=== PATIENT | female | born 1985 | race Hispanic/Latino ===

== ENCOUNTER 2018-04-15 20:42 | Inpatient (IN) | payer MEDICAID ==
[2018-04-15 20:48] VITALS: BMI 24.0
[2018-04-15] MEDS ORDERED: Sodium Chloride 0.9% 1,000 ML IV STA ×2 (20:54→21:30)
--- NOTE | 2018-04-15 20:57 | ED PDOC ---
Arrival/HPI - General Time Seen by Provider: 04/15/18 20:49 Historian: EM Caveat: Intubated (unresponsive) - Critical Care Critical Care Minutes: 45 minutes - History of Present Illness Narrative History of Present Illness (Text): 04/15/18 20:40 Unknown age female, with unknown history, presents to the emergency department by a passer by found to be unresponsive. Patient was found on the street with an empty bottle of Xanax next to her. Upon arrival to the emergency department, patient is unresponsive, cyanotic, and brought immediately to the resuscitation room. 2mg Narcan given with no response and blood sugar checked noted to be normal. Patient intubated upon arrival. HPI and ROS limited due to patient's state of unresponsiveness. Past Medical History - Provider Review Nursing Documentation Reviewed: Yes - Infectious Disease Hx of Infectious Diseases: None - Psychiatric Hx Substance Use: No (UTO) Family/Social History - Physician Review Nursing Documentation Reviewed: Yes Family/Social History: Unknown Family HX Smoking Status: Unknown If Ever Smoked Hx Alcohol Use: No (UTO) Hx Substance Use: No (UTO) Allergies/Home Meds Allergies/Adverse Reactions: Allergies Unobtainable Allergy (Verified 04/15/18 20:48) Home Medications: Home Meds Medication Instructions Recorded Confirmed RX: Unobtainable 04/15/18 04/15/18 Review of Systems - Physician Review All systems were reviewed & negative as marked: Yes - Review of Systems Systems not reviewed;Unavailable: Intubated (unresponsive) Physical Exam - Physical Exam Physical Exam Limitations: Other (unresponsive) Vital Signs Reviewed: Yes Temperature: Afebrile Blood Pressure: Normal Pulse: Tachycardic Respiratory Rate: Tachypneic Appearance: Positive for: Well-Appearing, Non-Toxic Pain Distress: None Mental Status: Positive for: other (unresponsive) - Systems Exam Head: Present: Atraumatic, Normocephalic Pupils: Present: Other (Constricted pupils) Conjunctiva: Present: Normal Neck: Present: Normal Range of Motion Respiratory/Chest: Present: Clear to Auscultation, Good Air Exchange. No: Respiratory Distress, Accessory Muscle Use Cardiovascular: Present: Regular Rate and Rhythm, Normal S1, S2. No: Murmurs Abdomen: No: Distention Back: Present: Normal Inspection Upper Extremity: Present: Normal Inspection. No: Cyanosis, Edema Lower Extremity: Present: Normal Inspection. No: Edema Skin: Present: Warm, Dry. No: Rashes Medical Decision Making ED Course and Treatment: 04/15/18 20:40 Impression: Unknown age female brought in by passer by for unresponsiveness. Patient was found in the street with empty bottle of Xanax. Patient intubated. suspect toxidrome Plan: -- ABG -- CT Head w/o contrast -- EKG -- Labs -- Chest X-Ray -- IV Fluids -- Urinary Cath -- Ventilator Setting -- HCG, Qualitative, Urinalysis -- Reassess and disposition Progress Notes: Respiratory therapist paged. 04/15/18 20:46 PROCEDURE: INTUBATION Performed by the emergency provider Time: 20:46 Timeout: A timeout to verify the correct patient, procedure, and site was performed. Indication: unresponsive Pre-oxygenation: [id number] Medications: See MAR for details. ETT Size: 7.5 Confirmation: Cords directly visualized as tube passed, good bilateral breath sounds, positive CO2 detector color change, tube fogging, adequate chest rise, improving pulse oximetry reading, improved skin color, and absence of gastric sounds,. ETT Secured: The cuff was inflated and the tube was secured appropriately at a distance of 22cm at the lip. Post-Procedure: There were no immediate complications. CXR Confirmation: Yes 04/15/18 21:02 EKG shows NSR at [address]/T wave change. QTC 485Interpreted by me. 04/15/18 21:16 04/15/18 21:31 Code sepsis called 2/2 la. 04/15/18 21:35 Case discussed with medical examiner and Dr. Fanny Griggs who is aware and agrees with the plan. Patient will be admitted to hospitalist service. 04/15/18 21:45 CXR Impression: As read by me, ET tube in place. No acute disease. 04/15/18 22:44 Patient found in the system. Patient has a past medical history of IV drug abuse. acepted icu. 04/19/18 07:22 - Critical Care Critical Care Minutes: 45 minutes - Lab Interpretations I have reviewed the lab results: Yes - RAD Interpretation Radiology Orders: 04/15/18 20:51 CHEST PORTABLE [RAD] Stat - EKG Interpretation Interpreted by ED Physician: Yes Type: 12 lead EKG - Scribe Statement The provider has reviewed the documentation as recorded by the Carlos A Barone Provider Scribe Attestation: All medical record entries made by the Samuelibbarbara were at my direction and personally dictated by me. I have reviewed the chart and agree that the record accurately reflects my personal performance of the history, physical exam, medical decision making, and the department course for this patient. I have also personally directed, reviewed, and agree with the discharge instructions and disposition. Disposition/Present on Arrival - Present on Arrival Any Indicators Present on Arrival: No History of DVT/PE: No History of Uncontrolled Diabetes: No Urinary Catheter: No History of Decub. Ulcer: No History Surgical Site Infection Following: None - Disposition Have Diagnosis and Disposition been Completed?: Yes Diagnosis: Overdose, Respiratory arrest Disposition: HOSPITALIZED Disposition Time: 10:00 Condition: CRITICAL
[2018-04-15 21:10] LABS: RBC 4.46 10^6/uL (3.5-6.1); WHITE BLOOD COUNT 15.1 10^3/ul (4.5-11.0)
[2018-04-15 21:11] LABS: BASO # 0.05 K/mm3 (0.0-2.0); BASO % 0.3 % (0.0-3.0); EOS # 0.7 (0.0-0.7); EOS % 4.5 % (1.5-5.0); GRAN # 5.24 (1.4-6.5); GRAN % 34.6 % (50.0-68.0); LYMPH # 7.9 (1.2-3.4); LYMPH % 52.3 % (22.0-35.0); MEAN CELL VOLUME 95.3 fl (80.0-105.0); MEAN CORPUSCULAR HEMOGLOBIN 31.4 pg (25.0-35.0); MEAN CORPUSCULAR HGB CONC 32.9 g/dl (31.0-37.0); MEAN PLATELET VOLUME 10.3 fl (7.0-11.0); MONO # 1.3 (0.1-0.6); MONO % 8.3 % (1.0-6.0); RED CELL DISTRIBUTION WIDTH 13.4 % (11.5-14.5)
--- NOTE | 2018-04-15 21:12 | CP.PCM.CON ---
Addendum entered and electronically signed by Kashmir Panda DO 04/16/18 05:30: This note is an HPI for the Hospitalist Service. It is not an ICU Consult Note though the patient did go to the ICU. PLease Disregard that the Note was opened up as a Consult Note. It serve as an HPI for admission and not as a consult note. Thank you Addendum entered and electronically signed by Ksahmir Panda DO 04/16/18 03:58: Patient is under a different MRN. Important to note, patient is prescribed 2 mg of Xanax (alprazolam) TID daily. She will need to be some Penelope-ergic medication, preferentially a benzodiazepine, to prevent withdrawal once she is off Propofol. Original Note: History of Present Illness - History of Present Illness History of Present Illness: HPI/ICU consult note for Dr. Ede Griggs 33 year old female with no known past medical history who was found to be unresponsive on the street and brought in to ED where patient was given Narcan and intubated. 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 Blood glucose was noted to be within normal range. Patient was unable to provide history and review of systems given she was unresponsive. Code sepsis called at 21:33. In ED patient was given fluids per sepsis protocol, blood cultures and urine cultures obtained, and then started on broad spectrum antibiotics. PMH, Surgical, social all unobtainable Review of Systems - Review of Systems Systems not reviewed;Unavailable: Acuity of Condition, Respiratory Distress, Altered Mental Status, Intubated Past Patient History - Infectious Disease Hx of Infectious Diseases: None - Past Social History Smoking Status: Unknown If Ever Smoked - PSYCHIATRIC Hx Substance Use: No (UTO) Meds Allergies/Adverse Reactions: Allergies Allergy/AdvReac Type Severity Reaction Status Date / Time Unobtainable Allergy Verified 04/15/18 20:48 - Medications Medications: Current Medications Sodium Chloride (Sodium Chloride 0.9%) 1,000 mls @ 999 mls/hr IV .Q1H1M STA Stop: 04/15/18 21:54 Last Admin: 04/15/18 21:02 Dose: 999 mls/hr Physical Exam - Constitutional Appears: Non-toxic, No Acute Distress - Head Exam Head Exam: ATRAUMATIC, NORMOCEPHALIC - Eye Exam Eye Exam: EOMI, Normal appearance - ENT Exam ENT Exam: Mucous Membranes Moist - Neck Exam Neck exam: Positive for: Normal Inspection - Respiratory Exam Respiratory Exam: Clear to Auscultation Bilateral, NORMAL BREATHING PATTERN. absent: Accessory Muscle Use - Cardiovascular Exam Cardiovascular Exam: RRR, +S1, +S2 - GI/Abdominal Exam GI & Abdominal Exam: Normal Bowel Sounds - Extremities Exam Extremities exam: Positive for: normal inspection. Negative for: calf tenderness - Back Exam Back exam: NORMAL INSPECTION. absent: CVA tenderness (L), CVA tenderness (R) - Neurological Exam Additional comments: intubated, sedated on propofol - Skin Skin Exam: Dry, Intact, Normal Color Results - Vital Signs Recent Vital Signs: Last Vital Signs Temp 97.7 F 04/15/18 20:43 Pulse 95 H 04/15/18 20:43 Resp 27 H 04/15/18 20:43 BP 138/82 04/15/18 20:43 Pulse Ox 100 04/15/18 20:43 - Labs Result Diagrams: 04/15/18 20:44 04/15/18 20:44 Assessment & Plan - Assessment and Plan (Free Text) Assessment: 1) Unresponsive - Intubated for airway protection - Narcan given in ED with no response - UDS positive for opiates;and benzodiazepines - CT head; chest, abdomen, and pelvis ordered 2) Leukocytosis, likely reactive - follow up procalcitonin, urine and blood cultures - ID consulted - Continue broad spectrum antibiotics 3) Lactic acidosis with VERONICA - Continue fluids at 180 mls/hr - Monitor Creatinine in AM - Avoid nephrotoxins - Repat lactic acid 4) DVT/GI prophylaxis - SCD - Protonix 40 mg IVP case reviewed and discussed with Dr. Ede Griggs - Date & Time Date: 04/16/18 Time: 00:43
[2018-04-15 21:16] LABS: INR 0.97; PROTHROMBIN TIME 11.1 SECONDS (9.4-12.5)
[2018-04-15] MEDS ORDERED: Propofol 10 mg/ml 500 MG/50 ML VIAL IV PRN (21:16)
[2018-04-15] MEDS ORDERED: Propofol 10 mg/ml 1,000 MG/100 ML VIAL ONE (21:17)
[2018-04-15 21:19] LABS: ACETAMINOPHEN < 10.0 ug/ml (10.0-20.0); SALICYLATE < 1 mg/dL (2.0-20.0)
[2018-04-15 21:21] LABS: ALB/GLOB RATIO 1.4 (1.1-1.8); ALBUMIN 4.2 g/dL (3.0-4.8); ALT/SGPT 29 U/L (7-56); AST/SGOT 49 U/L (14-36); BLOOD UREA NITROGEN 21 mg/dL (7-21); GFR NON-AFRICAN AMERICAN 48; LIPASE 173 U/L (23-300)
[2018-04-15 21:21] LABS: ARTERIAL BLOOD GAS HCO3 18.2 mmol/L (21-28); ARTERIAL BLOOD GAS O2 SAT 100.2 % (95-98); ARTERIAL BLOOD GAS PCO2 37 mm/Hg (35-45); ARTERIAL BLOOD GAS TCO2 19.3 mmol.L (22-28)
[2018-04-15] MEDS ORDERED: Propofol 10 mg/ml 1,000 MG/100 ML VIAL IV PRN (21:21)
[2018-04-15] MEDS ORDERED: Piperacillin/Tazobact 3.375 gm 100 ML IVPB STA (21:29)
[2018-04-15] MEDS ORDERED: Vancomycin 1gm in NS 250ml 1 GM/250 ML BAG IVPB STA (21:29)
[2018-04-15 21:31] LABS: TROPONIN I < 0.01 ng/mL
[2018-04-15 21:40] LABS: URINE BILIRUBIN NEGATIVE (NEGATIVE); URINE BLOOD SMALL (NEGATIVE); URINE GLUCOSE (UA) 250 mg/dL (NEGATIVE); URINE LEUKOCYTE ESTERASE NEGATIVE Leu/uL (NEGATIVE); URINE PROTEIN >=300 mg/dL (<30 mg/dL); URINE UROBILINOGEN 0.2 E.U./dL (<1 E.U./dL)
[2018-04-15 21:43] LABS: URINE APPEARANCE SLIGHT-CLOUDY (CLEAR)
[2018-04-15 21:44] LABS: HCG,QUALITATIVE URINE NEGATIVE (NEGATIVE); URINE AMORPHOUS SEDIMENT MODERATE
[2018-04-15 22:07] LABS: BARBITURATES, UR NEGATIVE (NEGATIVE); BENZODIAZEPINES, UR POSITIVE (NEGATIVE); OPIATES, UR POSITIVE (NEGATIVE); PHENCYCLIDINE, UR NEGATIVE (NEGATIVE)
--- NOTE | 2018-04-16 00:51 | PCM.SEPTIC ---
Sepsis Progress Note - Reassessment Type Date of Evaluation: 04/16/18 Time of Evaluation: 00:51 Reassessment Type: Non-invasive reassessment - Non Invasive Reassessment Were the most recent vital sign reviewed: Yes Vital Sign (Latest): Temp Pulse Resp BP Pulse Ox 97.7 F 84 22 134/88 100 04/15/18 20:43 04/16/18 00:21 04/16/18 00:21 04/16/18 00:21 04/16/18 00:21 Cardiovascular: Yes: Regular Rate, Rhythm Respiratory: Yes: Normal Breath Sounds Capillary Refill: Normal (Less than 2 sec) Pulses: Normal Radial, Normal Dorsalis Pedis, Normal Posterior Tibialis Skin: Warm - Invasive Reassessment (complete 2 of 4) Was a Central Venous Pressure Measurement obtained within 6 Hours after the presentation of septic shock: No
[2018-04-16 01:22] LABS: VENOUS BLOOD GAS BASE EXCESS -2.1 mmol/L (0.0-2.0); VENOUS BLOOD GAS PO2 58 mm/Hg (30-55); VENOUS BLOOD PH 7.24 (7.32-7.43)
[2018-04-16 05:57] LABS: ARTERIAL BLOOD GAS HCO3 24.8 mmol/L (21-28); ARTERIAL BLOOD GAS HEMOGLOBIN 10.4 g/dL (11.7-17.4); ARTERIAL BLOOD GAS O2 CAPACITY 15.2 mL/dl (16-24); ARTERIAL BLOOD GAS O2 CONTENT 15.2 ML/dl (15-23); ARTERIAL BLOOD GAS PCO2 47 mm/Hg (35-45); ARTERIAL BLOOD GAS PH 7.33 (7.35-7.45); ARTERIAL BLOOD GAS TCO2 26.2 mmol.L (22-28)
[2018-04-16 06:03] LABS: BASO # 0.01 K/mm3 (0.0-2.0); BASO % 0.1 % (0.0-3.0); EOS # 0.6 (0.0-0.7); EOS % 5.3 % (1.5-5.0); GRAN # 6.2 (1.4-6.5); GRAN % 56.9 % (50.0-68.0); HEMOGLOBIN 11.5 g/dL (12.0-16.0); LYMPH # 3.1 (1.2-3.4); LYMPH % 28.1 % (22.0-35.0); MEAN CELL VOLUME 90.7 fl (80.0-105.0); MEAN CORPUSCULAR HEMOGLOBIN 30.5 pg (25.0-35.0); MEAN CORPUSCULAR HGB CONC 33.6 g/dl (31.0-37.0); MEAN PLATELET VOLUME 9.5 fl (7.0-11.0); MONO % 9.6 % (1.0-6.0); RBC 3.77 10^6/uL (3.5-6.1); RED CELL DISTRIBUTION WIDTH 13.2 % (11.5-14.5); WHITE BLOOD COUNT 10.9 10^3/ul (4.5-11.0)
[2018-04-16 06:41] LABS: ALB/GLOB RATIO 1.1 (1.1-1.8); ALBUMIN 3.1 g/dL (3.0-4.8); ALT/SGPT 56 U/L (7-56); AST/SGOT 74 U/L (14-36); BLOOD UREA NITROGEN 22 mg/dL (7-21); CALCIUM 7.7 mg/dL (8.4-10.5); GFR NON-AFRICAN AMERICAN > 60
[2018-04-16] MEDS: Sodium Chloride 0.9% 1,000 ML IV SCH (06:52)
--- NOTE | 2018-04-16 07:51 | CP.PCM.PN ---
Subjective - Date & Time of Evaluation Date of Evaluation: 04/16/18 Time of Evaluation: 07:41 - Subjective Subjective: PGY-2 medicine progress note for Dr Easton No acute events noted overnight. She was extubated this morning and breathing comfortable on room air. She did not offer any complaints. Denied sob, cp, f/c, abd pain. Stated she took too much of her normal heroin dose prior to losing conscious. Objective - Vital Signs/Intake and Output Vital Signs (last 24 hours): Temp Pulse Resp BP Pulse Ox 99.0 F 84 19 134/88 100 04/16/18 02:08 04/16/18 06:00 04/16/18 07:03 04/16/18 01:00 04/16/18 07:03 Intake and Output: 04/16/18 04/16/18 06:59 18:59 Intake Total 1015 16 Output Total 400 Balance 615 16 - Medications Medications: Current Medications Propofol (Diprivan) 1,000 mg in 100 mls @ 3.81 mls/hr IV .Q24H PRN; Protocol PRN Reason: TITRATE PER MD ORDER Last Titration: 04/16/18 07:15 Dose: 0 mcg/kg/min, 0 mls/hr Piperacillin Sod/Tazobactam Sod (Zosyn 3.375 In Ns 100ml) 100 mls @ 25 mls/hr IVPB Q12 TAMMY; Protocol Stop: 04/23/18 10:01 Sodium Chloride (Sodium Chloride 0.9%) 1,000 mls @ 180 mls/hr IV .Q5H34M TAMMY Last Admin: 04/16/18 06:52 Dose: 180 mls/hr Pantoprazole Sodium (Protonix Inj) 40 mg IVP DAILY TAMMY - Labs Labs: 04/16/18 05:15 04/16/18 05:15 PT 11.1 SECONDS (9.4-12.5) 04/15/18 20:44 INR 0.97 04/15/18 20:44 APTT 30.0 Seconds (25.1-36.5) 04/15/18 20:44 - Additional Findings Additional findings: - Constitutional Appears: Non-toxic, No Acute Distress - Head Exam Head Exam: ATRAUMATIC, NORMOCEPHALIC - Eye Exam Eye Exam: EOMI, Normal appearance - ENT Exam ENT Exam: Mucous Membranes Moist - Neck Exam Neck exam: Positive for: Normal Inspection - Respiratory Exam Respiratory Exam: Clear to Auscultation Bilateral, NORMAL BREATHING PATTERN. absent: Accessory Muscle Use - Cardiovascular Exam Cardiovascular Exam: RRR, +S1, +S2 - GI/Abdominal Exam GI & Abdominal Exam: Normal Bowel Sounds - Extremities Exam Extremities exam: Positive for: normal inspection. Negative for: calf tenderness - Back Exam Back exam: NORMAL INSPECTION. absent: CVA tenderness (L), CVA tenderness (R) - Neurological Exam Additional comments: intubated, sedated on propofol - Skin Skin Exam: Dry, Intact, Normal Color Assessment and Plan - Assessment and Plan (Free Text) Plan: Mrs Rivero is a 33 year old female with an unknown PMHx found to be unresp onsive on the street with an empty bottle of Xanax and heroin paraphenilia next to her: Heroine Overdose -UDS positive for opiates and benzodiazepines; she stated she took too much of her normal heroin dose (shoots IV) -narcan was given in ED with no response -was initially intubated for airway protection now extubated and breathing comfortably -currently off sedation - AAOx3 -tolerating liquid diet Leukocytosis, Resolved -likely reactive -ID consulted, Dr Miller -zosyn 3.375g q12h for empiric coverage -f/u official report of imaging: * CT chest/abdomen/pelvis * head * CXR -f/u blood cx, urine cx, sputum cx Lactic acidosis, Improved -continue fluids at 100 mls/hr Hypokalemia -replated via IV DVT/GI prophylaxis -SCDs -protonix 40mg IVP qd Case discussed with Dr Easton
[2018-04-16] MEDS: Piperacillin/Tazobact 3.375 gm 100 ML IVPB SCH ×2 (09:19→21:13)
--- NOTE | 2018-04-16 11:39 | CARD ---
APPROVED REPORT Date of service: 04/15/2018 EKG Measurement Heart [id number] <Conclusion> Normal sinus rhythm RSR' or QR pattern in V1 suggests right ventricular conduction delay Prolonged QT Abnormal ECG
--- NOTE | 2018-04-16 12:14 | PN ---
DATE: 04/16/2018 TELEVISION SERVICE ENGINEER NOTE SUBJECTIVE: The patient is awake and alert, on the ventilator and is getting weaning protocol of pressure support and PEEP. She is tolerating it well and will be extubated soon. She has no obvious complaints. She is hemodynamically stable. PHYSICAL EXAMINATION: VITAL SIGNS: Her temperature is 99, her pulse is 84, respirations are 19, and BP is 134/88. SKIN: Warm and dry. HEENT: Head: Atraumatic, normocephalic. Eyes: Reactive to light. Ears, nose, and throat seemed to be within normal limits. NECK: Supple. No JVD, no thyroid enlargement, no lymph nodes. HEART: Has regular rate and rhythm. Normal S1 and S2. LUNGS: Reveal good breath sounds bilaterally. ABDOMEN: Soft, nontender, decreased bowel sounds. GENITALIA AND RECTAL: Deferred. MUSCULOSKELETAL: No joint deformities. EXTREMITIES: Reveal no significant edema. NEUROLOGIC: She seems to be grossly intact. LABORATORY DATA: As far as her laboratories are concerned, her white count is 10.9, hemoglobin is 11.5, hematocrit 34.2 with platelets of 245,000. Arterial blood gas reveals a pH of 7.33, pCO2 of 47, pO2 of 314. Sodium is 140, potassium 3.3, chloride 110, CO2 of 26 with a BUN of 22, creatinine of 0.9 and a glucose of 97. Chest x-ray is clear. IMPRESSION: This patient has drug overdose, noted to have benzodiazepines and opioids positive. The patient was intubated for airway protection. PLAN: The patient is scheduled for extubation. We will put on nasal cannula, follow O2 saturations, and continue with aggressive pulmonary toilet. We will discontinue the propofol and continue the Protonix as well as the IV fluids and Zosyn. We will continue to treat aggressively along with the other consultants and the primary care doctor. Jose Carmona MD
[2018-04-16] MEDS ORDERED: Sodium Chloride 0.9% 1,000 ML IV SCH (12:53)
--- NOTE | 2018-04-16 13:39 | CT ---
Date of service: 04/16/2018 PROCEDURE: CT Chest, Abdomen and Pelvis without intravenous contrast HISTORY: unresponsive, intubated, leukocytosis COMPARISON: None available. TECHNIQUE: Radiation dose: Total exam DLP = 739.77 mGy-cm. This CT exam was performed using one or more of the following dose reduction techniques: Automated exposure control, adjustment of the mA and/or kV according to patient size, and/or use of iterative reconstruction technique. FINDINGS: CT CHEST WITHOUT CONTRAST: LUNGS: Clear. No nodule, mass or consolidation. MEDIASTINUM: Unremarkable. Normal caliber aorta and pulmonary arterial trunk. Normal size heart. Endotracheal tube noted. Tip of tube situated 3.1 cm above the tracheal lew. LYMPH NODES: Unremarkable. PLEURA: Unremarkable. No pneumothorax. No pleural fluid. BONES: Unremarkable. OTHER FINDINGS: None. CT ABDOMEN AND PELVIS: LIVER: Unremarkable. No gross lesion or ductal dilatation. GALLBLADDER AND BILE DUCTS: Unremarkable. PANCREAS: Unremarkable. No gross lesion or ductal dilatation. SPLEEN: Unremarkable. ADRENALS: Unremarkable. No mass. KIDNEYS AND URETERS: Unremarkable. No hydronephrosis. No solid mass. VASCULATURE: Unremarkable. No aortic aneurysm. BOWEL: Unremarkable. No obstruction. No gross mural thickening. APPENDIX: Normal appendix. PERITONEUM: Unremarkable. No free fluid. No free air. LYMPH NODES: Unremarkable. No enlarged lymph nodes. BLADDER: Decompressed around Hale catheter REPRODUCTIVE: Normal uterus BONES: No acute fracture. OTHER FINDINGS: None. IMPRESSION: No acute thoracic or abdominal/pelvic abnormality. Endotracheal tube noted in grossly appropriate position. The preliminary findings for this examination were reported by [facility] at 2:20 a.m. on 04/16/2018. There is concurrence of this report with the preliminary findings.
--- NOTE | 2018-04-16 15:14 | CT ---
Date of service: 04/16/2018 PROCEDURE: CT HEAD WITHOUT CONTRAST. HISTORY: unresponsive COMPARISON: None available. TECHNIQUE: Axial computed tomography images were obtained through the head/brain without intravenous contrast. Radiation dose: Total exam DLP = 930.58 mGy-cm. This CT exam was performed using one or more of the following dose reduction techniques: Automated exposure control, adjustment of the mA and/or kV according to patient size, and/or use of iterative reconstruction technique. FINDINGS: HEMORRHAGE: No intracranial hemorrhage. BRAIN: No mass effect or edema. No atrophy or chronic microvascular ischemic changes. VENTRICLES: Unremarkable. No hydrocephalus. CALVARIUM: Unremarkable. PARANASAL SINUSES: Chronic frontal, ethmoid and sphenoid sinusitis. There is a small dependent fluid collection in the left maxillary antrum raising suspicion of acute sinusitis. Correlate clinically. Minimal chronic right maxillary sinusitis. MASTOID AIR CELLS: Unremarkable as visualized. No inflammatory changes. OTHER FINDINGS: None. IMPRESSION: No intracranial mass, hemorrhage or evidence of acute infarct. Chronic pansinusitis. Possible acute left maxillary sinusitis. The preliminary findings for this examination were reported by [facility] at 1:58 a.m. on 04/16/2018.. There is concurrence of this report with the preliminary findings.
--- NOTE | 2018-04-16 17:38 | RAD ---
Date of service: 04/15/2018 HISTORY: od/intubation COMPARISON: No prior. FINDINGS: LUNGS: No active pulmonary disease. PLEURA: No significant pleural effusion identified, no pneumothorax apparent. CARDIOVASCULAR: Normal heart size. ET tube noted with tip approximately 5.3 cm above the tracheal lew. OSSEOUS STRUCTURES: No significant abnormalities. VISUALIZED UPPER ABDOMEN: Normal. OTHER FINDINGS: None. IMPRESSION: No active disease.
--- NOTE | 2018-04-17 00:11 | CON ---
DATE OF CONSULTATION: 04/16/2018 LOCATION: The patient is seen in the ICU, bed number 129, bed 7. CHIEF COMPLAINT: Weakness times several days. HISTORY OF PRESENT ILLNESS: This is a 33-year-old female, who was found unresponsive with a history of substance abuse and was found with a bottle of Xanax and was intubated, now the patient is extubated, awake, seen in the ICU 129, bed 7. She has had no fevers and no chills. She denies any headaches or blurred vision. No abdominal pain, diarrhea, or constipation. PAST MEDICAL HISTORY: Significant for substance abuse and alcohol abuse. PAST SURGICAL HISTORY: Noncontributory. MEDICATIONS AT HOME: She denies taking any medications at home. PHYSICAL EXAMINATION: Temperature is 99, and the patient at this point, when I saw the patient, was extubated, off the vent, and heart rate was 95, which is down to 80, respiratory rate of 19, was up to 27, and blood pressure is 134/80. Examination of HEENT is unremarkable. Neck is supple. Lungs have decreased breath sounds. Heart exam is normal S1 and S2. Abdomen examination is soft, nontender. LABORATORY DATA: Laboratory examination reveals a white count of 15,100, hemoglobin of 14, platelets of 349. Coagulation is noted. Chemistries reveals the creatinine is 1.3 and is down to 0.9. Glucose of 230. LDH is 310, anion gap of 24. Urinalysis is unremarkable except for proteinuria and glucosuria and toxicology reveals positive opiates screen, positive benzodiazepine screen, and microbiology is pending. The patient had a CT scan of the chest and abdomen, which is pending, and Dr. Carmona's note is reviewed. ASSESSMENT AND PLAN: This is a 33-year-old female, who was found unresponsive with Xanax, and required intubation, now extubated, awake. 1. Systemic inflammatory response syndrome. 2. Acute kidney injury. 3. Metabolic acidosis secondary to lactic acidosis. We will check on the CT of the chest, CT of the abdomen. We will check on the cultures, and we will also check on an HIV and blood, urine, sputum cultures, MRSA screen, procalcitonin, hemoglobin A1c, and currently on Zosyn empirically. The patient was also given vancomycin. We will make further recommendations. Bertin Paredes MD
[2018-04-17 06:00] LABS: BASO # 0.01 K/mm3 (0.0-2.0); BASO % 0.2 % (0.0-3.0); EOS # 0.3 (0.0-0.7); EOS % 5.3 % (1.5-5.0); GRAN # 2.91 (1.4-6.5); GRAN % 48.5 % (50.0-68.0); HEMOGLOBIN 11.5 g/dL (12.0-16.0); LYMPH # 2.3 (1.2-3.4); LYMPH % 38.2 % (22.0-35.0); MEAN CELL VOLUME 89.9 fl (80.0-105.0); MEAN CORPUSCULAR HEMOGLOBIN 30.7 pg (25.0-35.0); MEAN CORPUSCULAR HGB CONC 34.1 g/dl (31.0-37.0); MEAN PLATELET VOLUME 9.6 fl (7.0-11.0); MONO # 0.5 (0.1-0.6); MONO % 7.8 % (1.0-6.0); RBC 3.75 10^6/uL (3.5-6.1)
[2018-04-17 06:15] LABS: ALB/GLOB RATIO 1.1 (1.1-1.8); ALBUMIN 3.1 g/dL (3.0-4.8); ALT/SGPT 49 U/L (7-56); AST/SGOT 42 U/L (14-36); BLOOD UREA NITROGEN 6 mg/dL (7-21); CALCIUM 8.4 mg/dL (8.4-10.5); GFR NON-AFRICAN AMERICAN > 60
[2018-04-17] MEDS ORDERED: Potassium Chloride 40 mEq/30 ml LIQ UD PO STA (07:00)
--- NOTE | 2018-04-17 10:46 | PN ---
DATE: 04/17/2018 SUBJECTIVE: The patient is resting in bed this morning. No real complaints. No complaints of shortness of breath, cough, wheezing, chest congestion. No chest pain. No fever, chills, nausea or vomiting. No abdominal pain. No diarrhea. The patient is alert and awake and oriented x3. PHYSICAL EXAMINATION: VITAL SIGNS: Physical exam note that her temperature is 99, pulse is 71, respirations are 17 and BP is 106/78. SKIN: Warm and dry. HEAD: Atraumatic, normocephalic. Eyes reactive to light. Ear, Nose and Throat seemed to be within normal limits. NECK: Supple. No JVD. No thyroid enlargement or lymph nodes. HEART: Has regular rate and rhythm. Normal S1, S2. LUNGS: Reveal good breath sounds bilaterally. ABDOMEN: Soft, nontender. Normal bowel sounds. No organomegaly noted. GENITALIA AND RECTAL: Deferred. MUSCULOSKELETAL: No joint deformities. EXTREMITIES: Reveal no edema. NEUROLOGIC: Patient is seen to be grossly intact. LABORATORY DATA: As far as her laboratories are concerned, her white count is 6, hemoglobin is 11.5, hematocrit 33.7 and platelets of 224,000. Her sodium is 139, potassium 3.3, chloride 106, CO2 of 30, BUN of 6, creatinine 0.7 and glucose of 83. IMPRESSION: This patient presented with drug overdose and noted to have benzodiazepines and opioids. The patient also is status post intubation and airway protection. PLAN: As far as our plan, we will continue to observe closely. The patient also noted to have hypokalemia. Her potassium is being corrected. She is on IV antibiotics and Protonix and we will continue to treat aggressively along with the other consultants and the primary care doctor. Jose Carmona MD
--- NOTE | 2018-04-17 14:13 | PN ---
DATE: 04/17/2018 SUBJECTIVE: The patient is in bed, in no acute distress, was seen earlier this morning, remains extubated. She is comfortable. PHYSICAL EXAMINATION VITAL SIGNS: Temperature is 98, T-max is 99, blood pressure is 120/70, respiratory rate is 16. HEENT: Unremarkable. NECK: Supple. LUNGS: Decreased breath sounds. HEART: Normal S1 and S2. ABDOMEN: Soft, nontender. LABORATORY EXAMINATION: Reveals a white count is 6000, hemoglobin of 11, and platelets of 224. Chemistries reveal a BUN of 6, creatinine of 0.7. Procalcitonin is 0.1. Urinalysis is negative and toxicology is noted. Microbiology reveals the blood cultures are negative. The patient had a CAT scan of the chest, abdomen, and pelvis. In the lungs, there is no consolidation, it is clear, no nodules. Abdomen and pelvis, essentially no intra-abdominal pathology is noted. The patient's white count has improved. note from yesterday is reviewed. ASSESSMENT AND PLAN: This is a 33-year-old who was found unresponsive, drug overdose, required intubation, now awake and alert. 1. Systemic inflammatory response syndrome with acute kidney injury which is resolved. Metabolic acidosis secondary to lactic acidosis appears to have resolved. Negative cultures, negative CAT scan of the chest, negative CAT scan of the abdomen, negative procalcitonin. We will discontinue the Zosyn. No further antibiotics at this time. The patient's creatinine is 0.7 this morning and bicarb is up to 30. Metabolic acidosis also corrected. She is at risk for developing nosocomial infections. We will follow up the remainder of the workup. Bertin Paredes MD
--- NOTE | 2018-04-17 17:32 | CP.PCM.PN ---
<Bebo Lee - Last Filed: 04/17/18 17:29> Subjective - Date & Time of Evaluation Date of Evaluation: 04/17/18 Time of Evaluation: 17:29 - Subjective Subjective: Internal Medicine Progress Note (Hospitalist Service): Alise PGY2 Patient seen and assessed at bedside in the ICU. No acute events noted overnight. Patient was successfully extubated yesterday afternoon and is currently comfortable on room air. Patient denies any complaints at this time including fevers, chills, headache, chest pain, SOB, cough, wheezing, abdominal pain, N/V/D/C, changes in urine output or any new skin changes. Objective - Vital Signs/Intake and Output Vital Signs (last 24 hours): Temp Pulse Resp BP Pulse Ox 99.2 F 72 17 106/73 100 04/17/18 12:00 04/17/18 14:00 04/17/18 07:00 04/17/18 07:00 04/17/18 07:00 Intake and Output: 04/17/18 04/17/18 06:59 18:59 Intake Total 240 Output Total 800 Balance -560 - Medications Medications: Current Medications Alprazolam (Xanax) 1 mg PO TID PRN; Protocol PRN Reason: Anxiety Last Admin: 04/17/18 14:32 Dose: 1 mg Pantoprazole Sodium (Protonix Ec Tab) 40 mg PO 0600 TAMMY - Labs Labs: 04/17/18 05:15 04/17/18 05:15 PT 11.1 SECONDS (9.4-12.5) 04/15/18 20:44 INR 0.97 04/15/18 20:44 APTT 30.0 Seconds (25.1-36.5) 04/15/18 20:44 - Constitutional Appears: Non-toxic, No Acute Distress - Head Exam Head Exam: ATRAUMATIC, NORMOCEPHALIC - Eye Exam Eye Exam: EOMI, Normal appearance - ENT Exam ENT Exam: Mucous Membranes Moist - Neck Exam Neck Exam: Full ROM - Respiratory Exam Respiratory Exam: Clear to Ausculation Bilateral, NORMAL BREATHING PATTERN. absent: Accessory Muscle Use, Rales, Rhonchi, Wheezes, Respiratory Distress - Cardiovascular Exam Cardiovascular Exam: REGULAR RHYTHM, RRR, +S1, +S2 - GI/Abdominal Exam GI & Abdominal Exam: Soft, Normal Bowel Sounds. absent: Tenderness - Extremities Exam Extremities Exam: absent: Calf Tenderness - Neurological Exam Neurological Exam: Alert, Awake, Oriented x3 - Psychiatric Exam Psychiatric exam: Normal Affect, Normal Mood - Skin Skin Exam: Dry, Intact, Warm Assessment and Plan - Assessment and Plan (Free Text) Assessment: 33 year old female with a past medical history significant for IVDA who presented with polysubstance overdose. Currently extubated and comfortable on room air. Plan: 1. Heroine/Benzodiazepine Overdose -S/P Extubation -Resolved -Currently off of sedation and AAOx3 -Xanax 1mg TID PRN for anxiety -Tolerating solid diet -Cessation counseling advised 2. Leukocytosis -Resolved -Afebrile -Blood, Urine and MRSA screen cultures negative -ID discontinued Zosyn -Continue to monitor off of antibiotics, per ID -ID consulted, all recommendations appreciated 3. Hypokalemia -Potassium at 3.3 today -Replenished with 40meq Potassium solution -Will monitor with daily CMP's GI Prophylaxis: Protonix DVT Prophylaxis: SCD's Disposition: Patient to be transferred to med/surg out of CCU and will be observed off of mechanical ventilation and sedation. Patient seen and case discussed with attending, Dr. Easton. <Jay Jay Easton - Last Filed: 04/17/18 17:56> Objective - Vital Signs/Intake and Output Vital Signs (last 24 hours): Temp Pulse Resp BP Pulse Ox 99.2 F 72 17 106/73 100 04/17/18 12:00 04/17/18 14:00 04/17/18 07:00 04/17/18 07:00 04/17/18 07:00 Intake and Output: 04/17/18 04/17/18 06:59 18:59 Intake Total 240 Output Total 800 Balance -560 - Medications Medications: Current Medications Alprazolam (Xanax) 1 mg PO TID PRN; Protocol PRN Reason: Anxiety Last Admin: 04/17/18 14:32 Dose: 1 mg Pantoprazole Sodium (Protonix Ec Tab) 40 mg PO 0600 TAMMY - Labs Labs: 04/17/18 05:15 04/17/18 05:15 PT 11.1 SECONDS (9.4-12.5) 04/15/18 20:44 INR 0.97 04/15/18 20:44 APTT 30.0 Seconds (25.1-36.5) 04/15/18 20:44 Attending/Attestation - Attestation I have personally seen and examined this patient.: Yes I have fully participated in the care of the patient.: Yes I have reviewed all pertinent clinical information, including history, physical exam and plan: Yes
[2018-04-18] MEDS ORDERED: Pantoprazole 40 mg EC Tab PO SCH (06:00)
[2018-04-18 07:15] LABS: BASO # 0.01 K/mm3 (0.0-2.0); BASO % 0.2 % (0.0-3.0); EOS # 0.3 (0.0-0.7); EOS % 5.1 % (1.5-5.0); GRAN # 3.65 (1.4-6.5); GRAN % 59.7 % (50.0-68.0); HEMOGLOBIN 11.9 g/dL (12.0-16.0); LYMPH # 1.7 (1.2-3.4); LYMPH % 28.3 % (22.0-35.0); MEAN CELL VOLUME 89.3 fl (80.0-105.0); MEAN CORPUSCULAR HEMOGLOBIN 30.2 pg (25.0-35.0); MEAN CORPUSCULAR HGB CONC 33.8 g/dl (31.0-37.0); MEAN PLATELET VOLUME 9.7 fl (7.0-11.0); MONO # 0.4 (0.1-0.6); MONO % 6.7 % (1.0-6.0); RBC 3.94 10^6/uL (3.5-6.1); RED CELL DISTRIBUTION WIDTH 12.9 % (11.5-14.5); WHITE BLOOD COUNT 6.1 10^3/ul (4.5-11.0)
[2018-04-18 07:42] LABS: ALB/GLOB RATIO 1.1 (1.1-1.8); ALBUMIN 3.5 g/dL (3.0-4.8); ALT/SGPT 33 U/L (7-56); AST/SGOT 37 U/L (14-36); BLOOD UREA NITROGEN 6 mg/dL (7-21); CALCIUM 9.1 mg/dL (8.4-10.5); GFR NON-AFRICAN AMERICAN > 60
[2018-04-18 09:05] VITALS: BP 117/70; PULSE 60; RESP 20; TEMP 97.7; O2SAT 98
--- NOTE | 2018-04-18 17:06 | CP.PCM.DIS ---
<Terri Grace - Last Filed: 04/18/18 17:31> Provider - Provider Date of Admission: 04/15/18 21:34 Attending physician: Mario Osborn MD Primary care physician: Chasity Moseley APN Consults: ID: Dr. Nick Psychiatry: Dr. Rodriguez Time Spent in preparation of Discharge (in minutes): 45 Hospital Course - Lab Results Lab Results: Micro Results 04/15/18 21:00 Blood Blood Culture - Preliminary Gram Positive Bubba 04/15/18 21:00 Blood Gram Stain - Final 04/15/18 21:20 Blood Blood Culture - Preliminary NO GROWTH AFTER 48 HOURS 04/16/18 03:30 Naris MRSA Culture (Admit) - Final MRSA NOT DETECTED 04/15/18 21:52 Urine Urine Culture - Final No Growth (<1,000 CFU/ML) Most Recent Lab Values WBC 6.1 10^3/ul (4.5-11.0) 04/18/18 06:25 RBC 3.94 10^6/uL (3.5-6.1) 04/18/18 06:25 Hgb 11.9 g/dL (12.0-16.0) L 04/18/18 06:25 Hct 35.2 % (36.0-48.0) L 04/18/18 06:25 MCV 89.3 fl (80.0-105.0) 04/18/18 06:25 MCH 30.2 pg (25.0-35.0) 04/18/18 06:25 MCHC 33.8 g/dl (31.0-37.0) 04/18/18 06:25 RDW 12.9 % (11.5-14.5) 04/18/18 06:25 Plt Count 245 10^3/uL (120.0-450.0) 04/18/18 06:25 MPV 9.7 fl (7.0-11.0) 04/18/18 06:25 Gran % 59.7 % (50.0-68.0) 04/18/18 06:25 Lymph % (Auto) 28.3 % (22.0-35.0) 04/18/18 06:25 [place] % (Auto) 6.7 % (1.0-6.0) H 04/18/18 06:25 Eos % (Auto) 5.1 % (1.5-5.0) H 04/18/18 06:25 Baso % (Auto) 0.2 % (0.0-3.0) 04/18/18 06:25 Gran # 3.65 (1.4-6.5) 04/18/18 06:25 Lymph # (Auto) 1.7 (1.2-3.4) 04/18/18 06:25 [place] # (Auto) 0.4 (0.1-0.6) 04/18/18 06:25 Eos # (Auto) 0.3 (0.0-0.7) 04/18/18 06:25 Baso # (Auto) 0.01 K/mm3 (0.0-2.0) 04/18/18 06:25 PT 11.1 SECONDS (9.4-12.5) 04/15/18 20:44 INR 0.97 04/15/18 20:44 APTT 30.0 Seconds (25.1-36.5) 04/15/18 20:44 pCO2 47 mm/Hg (35-45) H 04/16/18 05:30 pO2 314.0 mm/Hg (80-100) H 04/16/18 05:30 HCO3 24.8 mmol/L (21-28) 04/16/18 05:30 ABG pH 7.33 (7.35-7.45) L 04/16/18 05:30 ABG Total CO2 26.2 mmol.L (22-28) 04/16/18 05:30 ABG O2 Saturation 100.0 % (95-98) H 04/16/18 05:30 ABG O2 Content 15.2 ML/dl (15-23) 04/16/18 05:30 ABG Base Excess -1.3 mmol/L (-2.0-3.0) 04/16/18 05:30 ABG Hemoglobin 10.4 g/dL (11.7-17.4) L 04/16/18 05:30 ABG Carboxyhemoglobin 1.2 % (0.5-1.5) 04/16/18 05:30 POC ABG HHb (Measured) 0 % (0-5) 04/16/18 05:30 ABG Methemoglobin 0.7 % (0.0-3.0) 04/16/18 05:30 ABG O2 Capacity 15.2 mL/dl (16-24) L 04/16/18 05:30 ABG Potassium 3.6 mmol/L (3.6-5.2) 04/15/18 21:15 VBG pH 7.24 (7.32-7.43) L 04/16/18 01:00 VBG pCO2 62.0 (40-60) H 04/16/18 01:00 VBG HCO3 26.6 mmol/l (21-28) 04/16/18 01:00 VBG Total CO2 28.5 mmol.L (22-28) H 04/16/18 01:00 VBG O2 Sat (Calc) 90.0 % (40-65) H 04/16/18 01:00 VBG Base Excess -2.1 mmol/L (0.0-2.0) L 04/16/18 01:00 VBG Potassium 4.2 mmol/L (3.6-5.2) 04/16/18 01:00 Hgb O2 Saturation 98.1 % (95.0-98.0) H 04/16/18 05:30 Sodium 144.0 mmol/L (132-148) 04/16/18 01:00 Chloride 112.0 mmol/L (98-107) H 04/16/18 01:00 Glucose 68 mg/dl (65-105) 04/16/18 01:00 Lactate 3.8 mmol/L (0.7-2.1) H 04/16/18 01:00 FiO2 60.0 % 04/16/18 05:30 Sodium 139 mmol/L (132-148) 04/18/18 06:25 Potassium 3.7 mmol/L (3.6-5.0) 04/18/18 06:25 Chloride 105 mmol/L (98-107) 04/18/18 06:25 Carbon Dioxide 29 mmol/L (21-33) 04/18/18 06:25 Anion Gap 9 (10-20) L 04/18/18 06:25 BUN 6 mg/dL (7-21) L 04/18/18 06:25 Creatinine 0.7 mg/dl (0.7-1.2) 04/18/18 06:25 Est GFR ( Amer) > 60 04/18/18 06:25 Est GFR (Non-Af Amer) > 60 04/18/18 06:25 Random Glucose 113 mg/dL (70-110) H 04/18/18 06:25 Hemoglobin A1c 5.2 % (4.2-6.5) 04/16/18 05:15 Calcium 9.1 mg/dL (8.4-10.5) 04/18/18 06:25 Magnesium 1.9 mg/dL (1.7-2.2) 04/16/18 05:15 Total Bilirubin 0.4 mg/dL (0.2-1.3) 04/18/18 06:25 AST 37 U/L (14-36) H 04/18/18 06:25 ALT 33 U/L (7-56) 04/18/18 06:25 Alkaline Phosphatase 48 U/L (38-126) 04/18/18 06:25 Lactate Dehydrogenase 310 U/L (333-699) L 04/15/18 20:44 Total Creatine Kinase 129 U/L (35-230) 04/15/18 20:44 Troponin I < 0.01 ng/mL 04/15/18 20:44 Total Protein 6.6 g/dL (5.8-8.3) 04/18/18 06:25 Albumin 3.5 g/dL (3.0-4.8) 04/18/18 06:25 Globulin 3.1 gm/dL 04/18/18 06:25 Albumin/Globulin Ratio 1.1 (1.1-1.8) 04/18/18 06:25 Lipase 173 U/L (23-300) 04/15/18 20:44 Procalcitonin 0.10 NG/ML (0.19-0.49) L 04/16/18 05:15 Arterial Blood Potassium 3.6 mmol/L (3.6-5.2) 04/15/18 21:15 Venous Blood Potassium 4.2 mmol/L (3.6-5.2) 04/16/18 01:00 Urine Color yellow (YELLOW) 04/15/18 21:00 Urine Appearance Slight-cloudy (CLEAR) 04/15/18 21:00 Urine pH 6.0 (4.7-8.0) 04/15/18 21:00 Ur Specific [place] >= 1.030 (1.005-1.035) 04/15/18 21:00 Urine Protein >=300 mg/dL (<30 mg/dL) H 04/15/18 21:00 Urine Glucose (UA) 250 mg/dL (NEGATIVE) H 04/15/18 21:00 Urine Ketones Negative mg/dL (NEGATIVE) 04/15/18 21:00 Urine Blood Small (NEGATIVE) H 04/15/18 21:00 Urine Nitrate Negative (NEGATIVE) 04/15/18 21:00 Urine Bilirubin Negative (NEGATIVE) 04/15/18 21:00 Urine Urobilinogen 0.2 E.U./dL (<1 E.U./dL) 04/15/18 21:00 Ur Leukocyte Esterase Negative [place]/uL (NEGATIVE) 04/15/18 21:00 Urine RBC 10 - 15 /hpf (0-2) 04/15/18 21:00 Urine WBC 2 - 5 /hpf (0-6) 04/15/18 21:00 Ur Epithelial Cells 4 - 5 /hpf (0-5) 04/15/18 21:00 Amorphous Sediment Moderate 04/15/18 21:00 Urine HCG, Qual Negative (NEGATIVE) 04/15/18 21:00 Salicylates < 1 mg/dL (2.0-20.0) L 04/15/18 20:44 Urine Opiates Screen Positive (NEGATIVE) H 04/15/18 21:00 Urine Methadone Screen Negative (NEGATIVE) 04/15/18 21:00 Acetaminophen < 10.0 ug/ml (10.0-20.0) L 04/15/18 20:44 Ur Barbiturates Screen Negative (NEGATIVE) 04/15/18 21:00 Ur Phencyclidine Scrn Negative (NEGATIVE) 04/15/18 21:00 Ur Amphetamines Screen Negative (NEGATIVE) 04/15/18 21:00 U Benzodiazepines Scrn Positive (NEGATIVE) H 04/15/18 21:00 U Oth Cocaine Metabols Negative (NEGATIVE) 04/15/18 21:00 U Cannabinoids Screen Negative (NEGATIVE) 04/15/18 21:00 Alcohol, Quantitative < 10 mg/dL (0-10) 04/15/18 20:44 - Hospital Course Hospital Course: Upon Admission: Patient is a 33 year old female with a past medical history of IVDA who was found unresponsive on the street and brought into the ED. She was given Narcan and intubated at this time. 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 Blood glucose was noted to be within normal range. She was unable to provide history and review of systems given she was unresponsive. Hospital Course: During her stay, she was intubated upon arrival to the ED and code sepsis was called that night. Her ECG was abnormal and showed possible right ventricular conduction delay with prolonged QT interval. CT head showed possible acute left maxillary sinusitis. CT chest/abdomen/pelvis and CXR were shown to be unremarkable. She was given fluids, blood cultures and urine cultures were obtained, and was started on Zosyn and Vancomycin. The patient was treated overall for SIRS with acute kidney injury and metabolic acidosis secondary to lactic acidosis in the CCU. Her electrolytes were repleted as needed, she was extubated on 04/16, and transferred to med/surg. She continued to improve and was noted to be stable off ventilation and sedation. Today, the patient states she was feeling a lot better. She said she was eating and drinking well with no overnight or acute complaints/concerns. Discharge: Patient was cleared by psychiatry, but has evidence of bacteremia with positive blood cultures. She was instructed that remaining for treatment with antibiotics was the best course of action. Patient left AMA. She was alert and oriented. She did not appear to be under the influence of any drugs. She was able to walk safely. Patient was explained, in detail, the risks of signing out against medical advice. She was instructed to return to the nearest emergency if symptoms return. Discharge Exam - Head Exam Head Exam: ATRAUMATIC, NORMOCEPHALIC - Eye Exam Eye Exam: EOMI, Normal appearance - ENT Exam ENT Exam: Mucous Membranes Moist, Normal Exam - Neck Exam Neck exam: Normal Inspection - Respiratory Exam Respiratory Exam: Clear to PA & Lateral, NORMAL BREATHING PATTERN - Cardiovascular Exam Cardiovascular Exam: REGULAR RHYTHM, +S1, +S2 - GI/Abdominal Exam GI & Abdominal Exam: Soft, Unremarkable - Extremities Exam Extremities exam: normal inspection - Back Exam Back exam: NORMAL INSPECTION - Neurological Exam Neurological exam: Alert, Normal Gait, Oriented x3 - Psychiatric Exam Psychiatric exam: Normal Affect, Normal Mood - Skin Skin Exam: Dry, Intact, Warm Discharge Plan - Follow Up Plan Condition: CRITICAL Disposition: AGAINST MEDICAL ADVICE Referrals: Chasity Moseley APN [Primary Care Provider] - Brandon Nick MD [Staff Provider] - Janae Rodriguez MD [Staff Provider] - <Mario Osborn - Last Filed: 04/19/18 16:39> Provider - Provider Date of Admission: 04/15/18 21:34 Attending physician: Mario Osborn MD Primary care physician: Chasity Moseley APN Hospital Course - Lab Results Lab Results: Micro Results 04/15/18 21:20 Blood Blood Culture - Preliminary NO GROWTH AFTER 3 DAYS 04/15/18 21:00 Blood Blood Culture - Preliminary Gram Positive Bubba 04/15/18 21:00 Blood Gram Stain - Final 04/16/18 03:30 Naris MRSA Culture (Admit) - Final MRSA NOT DETECTED 04/15/18 21:52 Urine Urine Culture - Final No Growth (<1,000 CFU/ML) Most Recent Lab Values WBC 6.1 10^3/ul (4.5-11.0) 04/18/18 06:25 RBC 3.94 10^6/uL (3.5-6.1) 04/18/18 06:25 Hgb 11.9 g/dL (12.0-16.0) L 04/18/18 06:25 Hct 35.2 % (36.0-48.0) L 04/18/18 06:25 MCV 89.3 fl (80.0-105.0) 04/18/18 06:25 MCH 30.2 pg (25.0-35.0) 04/18/18 06:25 MCHC 33.8 g/dl (31.0-37.0) 04/18/18 06:25 RDW 12.9 % (11.5-14.5) 04/18/18 06:25 Plt Count 245 10^3/uL (120.0-450.0) 04/18/18 06:25 MPV 9.7 fl (7.0-11.0) 04/18/18 06:25 Gran % 59.7 % (50.0-68.0) 04/18/18 06:25 Lymph % (Auto) 28.3 % (22.0-35.0) 04/18/18 06:25 [place] % (Auto) 6.7 % (1.0-6.0) H 04/18/18 06:25 Eos % (Auto) 5.1 % (1.5-5.0) H 04/18/18 06:25 Baso % (Auto) 0.2 % (0.0-3.0) 04/18/18 06:25 Gran # 3.65 (1.4-6.5) 04/18/18 06:25 Lymph # (Auto) 1.7 (1.2-3.4) 04/18/18 06:25 [place] # (Auto) 0.4 (0.1-0.6) 04/18/18 06:25 Eos # (Auto) 0.3 (0.0-0.7) 04/18/18 06:25 Baso # (Auto) 0.01 K/mm3 (0.0-2.0) 04/18/18 06:25 PT 11.1 SECONDS (9.4-12.5) 04/15/18 20:44 INR 0.97 04/15/18 20:44 APTT 30.0 Seconds (25.1-36.5) 04/15/18 20:44 pCO2 47 mm/Hg (35-45) H 04/16/18 05:30 pO2 314.0 mm/Hg (80-100) H 04/16/18 05:30 HCO3 24.8 mmol/L (21-28) 04/16/18 05:30 ABG pH 7.33 (7.35-7.45) L 04/16/18 05:30 ABG Total CO2 26.2 mmol.L (22-28) 04/16/18 05:30 ABG O2 Saturation 100.0 % (95-98) H 04/16/18 05:30 ABG O2 Content 15.2 ML/dl (15-23) 04/16/18 05:30 ABG Base Excess -1.3 mmol/L (-2.0-3.0) 04/16/18 05:30 ABG Hemoglobin 10.4 g/dL (11.7-17.4) L 04/16/18 05:30 ABG Carboxyhemoglobin 1.2 % (0.5-1.5) 04/16/18 05:30 POC ABG HHb (Measured) 0 % (0-5) 04/16/18 05:30 ABG Methemoglobin 0.7 % (0.0-3.0) 04/16/18 05:30 ABG O2 Capacity 15.2 mL/dl (16-24) L 04/16/18 05:30 ABG Potassium 3.6 mmol/L (3.6-5.2) 04/15/18 21:15 VBG pH 7.24 (7.32-7.43) L 04/16/18 01:00 VBG pCO2 62.0 (40-60) H 04/16/18 01:00 VBG HCO3 26.6 mmol/l (21-28) 04/16/18 01:00 VBG Total CO2 28.5 mmol.L (22-28) H 04/16/18 01:00 VBG O2 Sat (Calc) 90.0 % (40-65) H 04/16/18 01:00 VBG Base Excess -2.1 mmol/L (0.0-2.0) L 04/16/18 01:00 VBG Potassium 4.2 mmol/L (3.6-5.2) 04/16/18 01:00 Hgb O2 Saturation 98.1 % (95.0-98.0) H 04/16/18 05:30 Sodium 144.0 mmol/L (132-148) 04/16/18 01:00 Chloride 112.0 mmol/L (98-107) H 04/16/18 01:00 Glucose 68 mg/dl (65-105) 04/16/18 01:00 Lactate 3.8 mmol/L (0.7-2.1) H 04/16/18 01:00 FiO2 60.0 % 04/16/18 05:30 Sodium 139 mmol/L (132-148) 04/18/18 06:25 Potassium 3.7 mmol/L (3.6-5.0) 04/18/18 06:25 Chloride 105 mmol/L (98-107) 04/18/18 06:25 Carbon Dioxide 29 mmol/L (21-33) 04/18/18 06:25 Anion Gap 9 (10-20) L 04/18/18 06:25 BUN 6 mg/dL (7-21) L 04/18/18 06:25 Creatinine 0.7 mg/dl (0.7-1.2) 04/18/18 06:25 Est GFR ( Amer) > 60 04/18/18 06:25 Est GFR (Non-Af Amer) > 60 04/18/18 06:25 Random Glucose 113 mg/dL (70-110) H 04/18/18 06:25 Hemoglobin A1c 5.2 % (4.2-6.5) 04/16/18 05:15 Calcium 9.1 mg/dL (8.4-10.5) 04/18/18 06:25 Magnesium 1.9 mg/dL (1.7-2.2) 04/16/18 05:15 Total Bilirubin 0.4 mg/dL (0.2-1.3) 04/18/18 06:25 AST 37 U/L (14-36) H 04/18/18 06:25 ALT 33 U/L (7-56) 04/18/18 06:25 Alkaline Phosphatase 48 U/L (38-126) 04/18/18 06:25 Lactate Dehydrogenase 310 U/L (333-699) L 04/15/18 20:44 Total Creatine Kinase 129 U/L (35-230) 04/15/18 20:44 Troponin I < 0.01 ng/mL 04/15/18 20:44 Total Protein 6.6 g/dL (5.8-8.3) 04/18/18 06:25 Albumin 3.5 g/dL (3.0-4.8) 04/18/18 06:25 Globulin 3.1 gm/dL 04/18/18 06:25 Albumin/Globulin Ratio 1.1 (1.1-1.8) 04/18/18 06:25 Lipase 173 U/L (23-300) 04/15/18 20:44 Procalcitonin 0.10 NG/ML (0.19-0.49) L 04/16/18 05:15 Arterial Blood Potassium 3.6 mmol/L (3.6-5.2) 04/15/18 21:15 Venous Blood Potassium 4.2 mmol/L (3.6-5.2) 04/16/18 01:00 Urine Color yellow (YELLOW) 04/15/18 21:00 Urine Appearance Slight-cloudy (CLEAR) 04/15/18 21:00 Urine pH 6.0 (4.7-8.0) 04/15/18 21:00 Ur Specific [place] >= 1.030 (1.005-1.035) 04/15/18 21:00 Urine Protein >=300 mg/dL (<30 mg/dL) H 04/15/18 21:00 Urine Glucose (UA) 250 mg/dL (NEGATIVE) H 04/15/18 21:00 Urine Ketones Negative mg/dL (NEGATIVE) 04/15/18 21:00 Urine Blood Small (NEGATIVE) H 04/15/18 21:00 Urine Nitrate Negative (NEGATIVE) 04/15/18 21:00 Urine Bilirubin Negative (NEGATIVE) 04/15/18 21:00 Urine Urobilinogen 0.2 E.U./dL (<1 E.U./dL) 04/15/18 21:00 Ur Leukocyte Esterase Negative [place]/uL (NEGATIVE) 04/15/18 21:00 Urine RBC 10 - 15 /hpf (0-2) 04/15/18 21:00 Urine WBC 2 - 5 /hpf (0-6) 04/15/18 21:00 Ur Epithelial Cells 4 - 5 /hpf (0-5) 04/15/18 21:00 Amorphous Sediment Moderate 04/15/18 21:00 Urine HCG, Qual Negative (NEGATIVE) 04/15/18 21:00 Salicylates < 1 mg/dL (2.0-20.0) L 04/15/18 20:44 Urine Opiates Screen Positive (NEGATIVE) H 04/15/18 21:00 Urine Methadone Screen Negative (NEGATIVE) 04/15/18 21:00 Acetaminophen < 10.0 ug/ml (10.0-20.0) L 04/15/18 20:44 Ur Barbiturates Screen Negative (NEGATIVE) 04/15/18 21:00 Ur Phencyclidine Scrn Negative (NEGATIVE) 04/15/18 21:00 Ur Amphetamines Screen Negative (NEGATIVE) 04/15/18 21:00 U Benzodiazepines Scrn Positive (NEGATIVE) H 04/15/18 21:00 U Oth Cocaine Metabols Negative (NEGATIVE) 04/15/18 21:00 U Cannabinoids Screen Negative (NEGATIVE) 04/15/18 21:00 Alcohol, Quantitative < 10 mg/dL (0-10) 04/15/18 20:44 Attending/Attestation - Attestation I have personally seen and examined this patient.: No I have fully participated in the care of the patient.: No I have reviewed all pertinent clinical information, including history, physical exam and plan: Yes Notes (Text): 04/19/18 16:37 attending note; Patient signed against medical advice before rounds. I did not see the patient. patient was seen by resident this morning. Apparently patient was alert and awake and walking in the hallway. patient was not in any acute distress. risks of leaving AMA explained to the patient in detail by the resident.`
--- NOTE | 2018-04-18 22:03 | CON ---
DATE: 04/18/2018 In short, the patient is a 33-year-old female. The patient was admitted on the medical site after was found to be unresponsive. The patient had Xanax empty bottle next to her. The patient was admitted on the medical psych. Psych consult was called for evaluation of possible intentional overdose. On the scene, the patient was given 2 mg of Narcan, but was not effective. The patient was seen and examined today. Previous history reviewed. The patient does not have history here in [place]. The patient presented to be alert and oriented, pleasant and cooperative. The patient seems to be a good and reliable historian. The patient reported that she was released from detention for shoplifting on 04/13. The patient relapsed on drugs. The patient reported that she overdosed on Xanax as well as heroin, which has improved by urine drug screen, opioids positive and benzodiazepines positive. The patient reported that she was not using for a while and her body was clean and that is why her previous doses were toxic for her. The patient denied being depressed. Denied thoughts of harming herself or others. The patient is happy to be alive. The patient said that her house situation is stable. She lives with her boyfriend and his mother. The patient reported had never been seen by psychiatrist in the past, but has reported history of being in detoxs and rehabs and talking to counseling services back then. The patient denied that she is hearing voices, denied seeing things, denied paranoid ideation. The patient does not present to be psychotic. Vital signs reviewed, temperature 97.7, pulse is 60, blood pressure 117/70, respirations 26, and saturation is 98. Medications reviewed, the patient is on Xanax 1 mg three times a day as needed and Protonix. The patient labs stable. Hematology reviewed,hemoglobin and hematocrit are mildly decreased at 11.9 and 35.2, respectively. Coagulation reviewed. Blood gas reviewed. Chemistry reviewed. Urinalysis reviewed. Toxicology was positive for opioids as well as benzodiazepines. Microbiology, gram-positive rods in the blood, and it was on 04/15. MENTAL STATUS EXAMINATION: The patient presented to be alert and oriented, pleasant and cooperative. The patient had fair eye contact. Speech was normal rate, tone, quality, and quantity. Mood described, "I'm not depressed, I feel happy to be alive." Affect was reactive, mood congruent. Thought process was coherent and goal directed. Thought content, the patient denied visual, auditory, or tactile hallucinations. Denied paranoid ideation. Adamantly denied any thoughts of harming herself or others. Denied that she wanted to harm herself prior to coming to the hospital. Insight and judgment seem to be fair. Impulses are well controlled. IMPRESSION: Accidental overdose on benzodiazepines and opioids. Rule out opioids as well as benzodiazepines addiction abuse. PLAN: Continue current management. Continue current medication. The patient contracted for safety. The patient does not have history of hearing voices. The patient pose no imminent danger to self or others. Collaterals from the medical staff, nurses, the patient is calm, cooperative, no behavioral incidents. This filing writer will sign off. Please consider social work evaluation for possible AA and NA meetings. The patient is aware that she needs to follow. Meanwhile, continue current management and current medication. This filing writer will sign off. Should you have any questions, give me a call back. Janae Rodriguez MD
== END 2018-04-18 12:40 | disposition left against medical advice (07) | DRG 582 ==
LOC: EDBD 20:42 → ED 20:42 → ERH 21:34 → CCU 04-16 01:18 → 5RSO 04-17 19:22
PROVIDERS: ADMIT Hospitalist; ATTEND Internal Medicine
PROC: 0BH17EZ Insertion of Endotracheal Airway into Trachea, Via Natural or Artificial Opening (ICD-10-PCS; principal; 2018-04-16)
PROC: 5A1935Z Respiratory Ventilation, Less than 24 Consecutive Hours (ICD-10-PCS; 2018-04-16)
DX: T42.4X1A Poisoning by benzodiazepines, accidental (unintentional), initial encounter (principal); N17.9 Acute kidney failure, unspecified; R65.10 Systemic inflammatory response syndrome (SIRS) of non-infectious origin without acute organ dysfunction; R78.81 Bacteremia; R09.2 Respiratory arrest; E87.2 Acidosis; E87.6 Hypokalemia; T40.1X1A Poisoning by heroin, accidental (unintentional), initial encounter; F19.10 Other psychoactive substance abuse, uncomplicated